=== PATIENT | female | born 1965 | race Caucasian/White ===

== ENCOUNTER 2020-08-01 03:37 | Emergency (ER) | payer OTHER ==
[~2020-08-01 03:37] MED LIST: BENTYL10 MG PO; CARAFATE1 GM PO; ONDANSETRON ODT4 MG PO
[2020-08-01 04:10] LABS: BASOPHIL 0.1 % (0-2); HCT 44.1 % (37.0-47.0); HGB 15.3 g/dl (12.5-16.0); LYMPHOCYTE 38.3 % (15-48); MCH 30.5 pg (25.0-31.0); MCHC 34.7 g/dL (32.0-36.0); MCV 87.8 fL (78.0-100.0); MONOCYTE 6.6 % (0-12); NEUTROPHIL 52.9 % (41-80); NRBC 0; PLT 339 K/uL (150-400); RBC 5.02 M/uL (4.20-5.40); WBC 13.4 K/uL (4.0-10.5)
[2020-08-01 04:23] LABS: BILIRUBIN - TOTAL 0.5 mg/dL (0.2-1.0); CREATININE 0.81 mg/dL (0.51-0.95); GLOBULIN (CALCULATION) 4.2 g/dL; POTASSIUM 3.7 mmol/L (3.5-5.1); TOTAL PROTEIN 8.2 g/dL (6.4-8.2)
[2020-08-01 04:29] LABS: LACTIC ACID 0.7 mmol/L (0.4-1.9)
[2020-08-01] MEDS ORDERED: CARAFATE1 GM PO (07:22)
[2020-08-01] MEDS ORDERED: BENTYL10 MG PO (07:22)
[2020-08-01] MEDS ORDERED: PHENERGAN25 M1 PO (07:22)
[2020-08-01] MEDS ORDERED: NORCO 5-325 TA1 EACH PO (07:22)
[2020-08-01] MEDS ORDERED: PROTONIX 40MG T40 MG PO (07:22)
[2020-08-01] MEDS ORDERED: CIPRO500 MG PO (07:22)
== END 2020-08-01 08:24 | disposition home or self-care (01) ==
LOC: FER 03:37
PROVIDERS: Emergency Medicine Emergency Medical Services
DX: K52.9 Noninfective gastroenteritis and colitis, unspecified (principal); I10 Essential (primary) hypertension; E78.5 Hyperlipidemia, unspecified; E11.9 Type 2 diabetes mellitus without complications; F17.210 Nicotine dependence, cigarettes, uncomplicated; Z98.51 Tubal ligation status; Z79.899 Other long term (current) drug therapy; Z87.19 Personal history of other diseases of the digestive system
CPT/HCPCS: 36415; 80053; 83605; 83690; 84145; 85025; J1170; J1885; J2405; J7030; Q9967